=== PATIENT | male | born 2000 | race Caucasian/White ===

== ENCOUNTER → 2021-11-04 | Day surgery (SDC) | payer OTHER ==
[~2021-11-04] MED LIST: ALBUTEROL0.63 MG/3 INH; HYDROXYZINE HCL50 MG PO; SINGULAIR10 MG PO; VENTOLIN/PROVE0.5 ML INH
== END | disposition home or self-care (01) ==
LOC: OR 07:04
DX: K64.1 Second degree hemorrhoids (principal); K59.09 Other constipation; F41.9 Anxiety disorder, unspecified; J45.909 Unspecified asthma, uncomplicated; F17.290 Nicotine dependence, other tobacco product, uncomplicated; E66.8 Other obesity; Z68.34 Body mass index [BMI] 34.0-34.9, adult; Z79.899 Other long term (current) drug therapy
CPT/HCPCS: J2001; J2704; J7040